=== PATIENT | female | born 1990 | race Hispanic/Latino ===

== ENCOUNTER 2017-08-28 18:43 | Emergency (ER) | payer OTHER, SELFPAY ==
[2017-08-28 19:50] LABS: Bilirubin Negative (Negative); Blood, Urine Negative (Negative); Clarity CLEAR (Clear); Glucose, Urine (Dipstick) Negative (Negative); Leukocyte Negative (Negative); Nitrite Negative (Negative); Protein, Urine (Dipstick) Negative (Neg-Trace); Specific Gravity, Urine 1.023 (1.002-1.036); pH, Urine 6.5 (5.0-9.0)
[2017-08-28 19:55] LABS: Pregnancy Test - Urine (BHCG) Negative (Negative); Pregu Control Background? CLEAR/WHITE (CLR/WHITE); Pregu Control Bar Appear? YES (CONTROL BAR); Specific Gravity 1.023 (1.002-1.036)
[2017-08-28 20:12] LABS: #Eosinphils 0.1 thou/uL (0.0-0.7); #Lymphocytes 1.2 thou/uL (1.20-3.40); #Monocytes 0.5 thou/uL (0.11-0.59); %Basophils 0.7 % (0.0-1.0); %Eosinophils 1.7 % (0.0-10.0); %Lymphocytes 21.2 % (21.0-51.0); %Monocytes 8.2 % (0.0-10.0); %Neutrophils 68.1 % (42.0-75.0); Hemoglobin 10.1 g/dL (12.0-16.0); Mean Corpuscular HGB CONC 30.8 g/dL (32.0-36.0); Mean Corpuscular Volume 68.2 fl (81.0-99.0); Mean Platelet Volume 8.1 fL (7.4-10.4); Platelet Count 232 thou/uL (130-400); RBC Distribution Width 17.4 % (11.5-14.5); Red Blood Cell (RBC) Count 4.78 mill/uL (4.20-5.40); White Blood Cell (WBC) Count 5.9 thou/uL (4.8-10.8)
[2017-08-28 20:26] LABS: Anisocytosis SLIGHT = 6-15 cells (100X) (0-5/hpf); Elliptocytes SLIGHT = 2-5 cells (100X) (0-1/hpf); Hypochromia SLIGHT = 6-15 cells (100X) (0-5/hpf); Large Platelets SLIGHT; MDiff Complete? YES; Microcytosis MODERATE=15-30 cells (100X) (0-5/hpf); Ovalocytes SLIGHT = 2-5 cells (100X) (0-1/hpf); PLT Morphology Comment Appears Adequate; Polychromasia SLIGHT = 2-3 cells (100X) (0-2/hpf); Tear Drops SLIGHT = 2-5 cells (100X) (0-1/hpf)
[2017-08-28 20:32] LABS: ALT (SGPT) 16 U/L (8-55); AST (SGOT) 14 U/L (5-34); Alkaline Phosphatase 126 U/L (40-150); Anion Gap 11 mmol/L (10-20); BUN (Urea Nitrogen) 11 mg/dL (7.0-18.7); Bilirubin, Total 0.3 mg/dL (0.2-1.2); Calc. Creatinine Clearance 0 mL/min (70-130); Carbon Dioxide 22 mmol/L (22-29); Chloride 108 mmol/L (98-107); Estimated GFR-MDRD Greater than 90; Globulin 3.4 g/dL (2.4-3.5); Glucose 92 mg/dL (70-105); Lipase 13 U/L (8-78); Potassium 3.6 mmol/L (3.5-5.1); Protein, Total 7.4 g/dL (6.0-8.3); Sodium 137 mmol/L (136-145)
[2017-08-28] MEDS ORDERED: Ondansetron HCl/PF 4 MG/2 ML Vial ONE (21:13)
== END 2017-08-28 23:06 | disposition home or self-care (01) ==
LOC: ERS 18:43
DX: K29.70 Gastritis, unspecified, without bleeding (principal)
CPT/HCPCS: 36415; 80053; 81003; 81025; 83690; 85025; 96361; 96374; J2405

== ENCOUNTER 2019-04-24 01:22 | Emergency (ER) | payer SELFPAY ==
[2019-04-24 02:29] LABS: #Eosinphils 0.1 thou/uL (0.0-0.7); #Lymphocytes 2.2 thou/uL (1.20-3.40); #Monocytes 0.5 thou/uL (0.11-0.59); #Neutrophils 4.4 thou/uL (1.40-6.50); %Basophils 0.2 % (0.0-1.0); %Eosinophils 1.6 % (0.0-10.0); %Monocytes 6.7 % (0.0-10.0); %Neutrophils 60.5 % (42.0-75.0); Hemoglobin 11.6 g/dL (12.0-16.0); Mean Corpuscular HGB CONC 32.2 g/dL (32.0-36.0); Mean Corpuscular Hemoglobin 23.8 pg (27.0-31.0); Mean Corpuscular Volume 73.9 fL (78.0-98.0); Platelet Count 242 thou/uL (130-400); Red Blood Cell (RBC) Count 4.87 mill/uL (4.20-5.40); White Blood Cell (WBC) Count 7.2 thou/uL (4.8-10.8)
[2019-04-24 02:41] LABS: ALT (SGPT) 27 U/L (8-55); AST (SGOT) 26 U/L (5-34); Alkaline Phosphatase 130 U/L (40-110); Anion Gap 12 mmol/L (10-20); BUN (Urea Nitrogen) 13 mg/dL (7.0-18.7); Bilirubin, Total Less than 0.2 mg/dL (0.2-1.2); Calc. Creatinine Clearance 0 mL/min (70-130); Calcium 9.3 mg/dL (7.8-10.44); Carbon Dioxide 23 mmol/L (22-29); Chloride 106 mmol/L (98-107); Estimated GFR-MDRD Greater than 90; Globulin 3.6 g/dL (2.4-3.5); Glucose 91 mg/dL (70-105); Protein, Total 7.6 g/dL (6.0-8.3); Sodium 137 mmol/L (136-145)
[2019-04-24 03:39] LABS: Bilirubin Negative (Negative); Blood, Urine Negative (Negative); Clarity Clear (Clear); Glucose, Urine (Dipstick) Normal (Negative); Leukocyte Negative Leu/uL (Negative); Nitrite Negative (Negative); Protein, Urine (Dipstick) Negative (Neg-Trace); Urobilinogen Normal mg/dL (Less than 2)
[2019-04-24 03:42] LABS: Pregnancy Test - Urine (BHCG) Negative (Negative); Pregu Control Background? CLEAR/WHITE (CLR/WHITE); Pregu Control Bar Appear? YES (CONTROL BAR); Specific Gravity 1.026 (1.002-1.036)
== END 2019-04-24 04:08 | disposition home or self-care (01) ==
LOC: ERS 01:22
DX: K62.89 Other specified diseases of anus and rectum (principal)
CPT/HCPCS: 80053; 81003; 81025; 85025; 99284

== ENCOUNTER 2019-08-25 15:22 | Emergency (ER) | payer SELFPAY ==
--- NOTE | 2019-08-25 15:47 | RAD ---
PA AND LATERAL CHEST: HISTORY: Chest pain. Fever. Cough. FINDINGS: Heart size and mediastinum are within normal limits. There is minimal linear change in the left base, which is probably related to scar versus atelectasis. IMPRESSION: No confluent infiltrates. POS: [facility]
[2019-08-25] MEDS ORDERED: Acetaminophen 500 MG TAB ONE (16:14)
[2019-08-25] MEDS ORDERED: Ketorolac Tromethamine 30 MG/ML VIAL ONE (16:14)
== END 2019-08-25 17:17 | disposition home or self-care (01) ==
LOC: ERS 15:22
DX: J11.1 Influenza due to unidentified influenza virus with other respiratory manifestations (principal); E86.0 Dehydration
CPT/HCPCS: 71046; 87804; 96372; J1885

== ENCOUNTER 2020-04-11 03:07 | Emergency (ER) | payer MEDICAID, OTHER ==
[2020-04-11] MEDS ORDERED: diphenhydrAMINE 25 MG CAP ONE (03:35)
[2020-04-11] MEDS ORDERED: Famotidine 20 MG TAB ONE (03:35)
[2020-04-11] MEDS ORDERED: predniSONE 20 MG TAB ONE (03:35)
== END 2020-04-11 04:00 | disposition home or self-care (01) ==
LOC: ERS 03:07
DX: L50.9 Urticaria, unspecified (principal)
CPT/HCPCS: 99282; J7512; Q0163

== ENCOUNTER 2021-03-22 21:23 | Emergency (ER) | payer SELFPAY ==
[2021-03-22] MEDS ORDERED: Ketorolac Tromethamine 30 MG/ML VIAL ONE (22:46)
[2021-03-22] MEDS ORDERED: diphenhydrAMINE 50 MG/ML VIAL ONE (22:46)
[2021-03-22] MEDS ORDERED: Metoclopramide HCl 10 MG/2 ML VIAL ONE (22:46)
[2021-03-23 13:56] LABS: SARS-CoV-2 PCR by NAA Not Detected (NotDetected)
== END 2021-03-23 00:32 | disposition home or self-care (01) ==
LOC: ERS 21:23
DX: R51.9 Headache, unspecified (principal); Z20.822 Contact with and (suspected) exposure to COVID-19
CPT/HCPCS: 96365; 96375; J1200; J1885; J2765; U0003; U0005

== ENCOUNTER 2021-08-03 16:09 | Emergency (ER) | payer OTHER ==
[2021-08-03] MEDS ORDERED: Ibuprofen 200 MG TAB ONE (16:55)
[2021-08-03] MEDS ORDERED: Acetaminophen 500 MG TAB ONE (17:33)
[2021-08-03 23:42] LABS: SARS-CoV-2 PCR by NAA DETECTED (NotDetected)
== END 2021-08-03 19:04 | disposition home or self-care (01) ==
LOC: ERS 16:09
DX: U07.1 COVID-19 (principal)
CPT/HCPCS: 87804; 99283; U0003; U0005

== ENCOUNTER 2021-12-15 07:20 | Emergency (ER) | payer OTHER, SELFPAY ==
[2021-12-15] MEDS ORDERED: Ketorolac Tromethamine 30 MG/ML VIAL ONE (08:12)
[2021-12-15 09:24] LABS: Bacteria/HPF None Seen HPF (None Seen); Bilirubin Negative (Negative); Blood, Urine Trace (Negative); Clarity Turbid (Clear); Glucose, Urine (Dipstick) Normal (Negative); Ketone, Urine Negative (Negative); Leukocyte 25 Leu/uL (Negative); Nitrite Negative (Negative); Protein, Urine (Dipstick) Negative (Neg-Trace); RBC/HPF 0-3 HPF (0-3); Specific Gravity, Urine 1.028 (1.002-1.036); Urobilinogen Normal mg/dL (Less than 2); WBC/HPF 0-3 HPF (0-3); pH, Urine 5.5 (5.0-9.0)
[2021-12-15 09:25] LABS: Pregnancy Test - Urine (BHCG) Negative (Negative); Pregu Control Background? CLEAR/WHITE (CLR/WHITE); Pregu Control Bar Appear? YES (CONTROL BAR); Specific Gravity 1.028 (1.002-1.036)
== END 2021-12-15 09:58 | disposition home or self-care (01) ==
LOC: ERS 07:20
DX: M54.50 Low back pain, unspecified (principal)
CPT/HCPCS: 72100; 81003; 81015; 81025; 87086; 96372; J1885

== ENCOUNTER 2022-09-27 19:00 | Emergency (ER) | payer SELFPAY ==
[2022-09-27] MEDS ORDERED: Ondansetron ODT 4 MG TAB ONE (19:15)
== END 2022-09-27 19:55 | disposition home or self-care (01) ==
LOC: ERS 19:00
DX: R11.10 Vomiting, unspecified (principal); R19.7 Diarrhea, unspecified
CPT/HCPCS: 99283; Q0162

== ENCOUNTER 2023-03-14 18:50 | Emergency (ER) | payer SELFPAY ==
[2023-03-14 23:04] LABS: SARS-CoV-2 NAA Rapid Test DETECTED (NotDetected)
== END 2023-03-14 23:58 | disposition home or self-care (01) ==
LOC: ERS 18:50
DX: U07.1 COVID-19 (principal)
CPT/HCPCS: 99283

== ENCOUNTER 2023-10-21 12:08 | Emergency (ER) | payer BC, SELFPAY ==
[2023-10-21] MEDS ORDERED: TETANUS, DIPHTHERIA TOX,ADULT (TDVAX) 0.5 ML VIAL IM ONE (14:18)
== END 2023-10-21 14:11 | disposition home or self-care (01) ==
LOC: ERS 12:08
DX: S01.81XA Laceration without foreign body of other part of head, initial encounter (principal); W22.8XXA Striking against or struck by other objects, initial encounter
CPT/HCPCS: 12011; 90471; 90714

== ENCOUNTER 2024-06-03 20:58 | Emergency (ER) | payer SELFPAY ==
[~2024-06-03 20:58] MED LIST: Iopamidol-370 76% 500 ML MDV (1 ML CHARGE) ONE
[2024-06-03] MEDS ORDERED: Ibuprofen 200 MG TAB ONE (21:07)
[2024-06-03] MEDS ORDERED: Dexamethasone 10 MG/ML VIAL ONE (21:54)
[2024-06-03 22:03] LABS: #Basophils 0.04 10x3/uL (0.0-0.2); %Basophils 0.5 % (0.0-1.0); %Eosinophils 1.8 % (0.0-10.0); %Lymphocytes 30.8 % (21.0-51.0); %Monocytes 7.6 % (0.0-10.0); %Neutrophils 59.2 % (42.0-75.0); Hematocrit 38.4 % (36.0-47.0); Hemoglobin 12.3 g/dL (12.0-16.0); Mean Corpuscular Hemoglobin 25.6 pg (27.0-31.0); Mean Platelet Volume 11.2 fL (7.4-10.4); Platelet Count 278 10x3/uL (130-400); RBC Distribution Width 14.7 % (11.5-14.5)
[2024-06-03 23:51] LABS: ALT (SGPT) 37 U/L (8-55); AST (SGOT) 29 U/L (5-34); Albumin 3.1 g/dL (3.5-5.0); Alkaline Phosphatase 121 U/L (40-110); Anion Gap 13 mmol/L (10-20); BUN (Urea Nitrogen) 13 mg/dL (7.0-18.7); Bilirubin, Total 0.1 mg/dL (0.2-1.2); Calc. Creatinine Clearance 0 mL/min (70-130); Calcium 8.4 mg/dL (7.8-10.44); Carbon Dioxide 18 mmol/L (22-29); Chloride 108 mmol/L (98-107); Estimated GFR 102; Globulin 3.8 g/dL (2.4-3.5); Glucose 89 mg/dL (70-105); Potassium 4.4 mmol/L (3.5-5.1); Protein, Total 6.9 g/dL (6.0-8.3); Sodium 135 mmol/L (136-145)
== END 2024-06-03 23:59 | disposition home or self-care (01) ==
LOC: ERS 20:58
DX: H66.91 Otitis media, unspecified, right ear (principal)
CPT/HCPCS: 70481; 71046; 80053; 83605; 85025; 87070; 87077; 87186; 87205; 96374; J1100; Q9967

== ENCOUNTER 2025-05-05 17:57 | Emergency (ER) | payer MEDICAID, OTHER ==
[2025-05-05] MEDS ORDERED: Ibuprofen 800 MG TAB ONE (19:49)
[2025-05-05] MEDS ORDERED: Orphenadrine Citrate 60 MG/2 ML VIAL ONE (19:49)
[2025-05-05] MEDS ORDERED: Dexamethasone 10 MG/ML VIAL ONE (19:49)
== END 2025-05-05 20:47 | disposition home or self-care (01) ==
LOC: ERS 17:57
DX: M54.2 Cervicalgia (principal); M54.6 Pain in thoracic spine
CPT/HCPCS: 96372; 99282; J1100; J2360; J3010